=== PATIENT | male | born 1960 | race Caucasian/White ===

== ENCOUNTER 2016-11-03 11:15 | Emergency (ER) | payer OTHER ==
[~2016-11-03] VITALS: Ht 162.6 cm; Wt 60.5 kg
[2016-11-03 11:18] VITALS: BP 155/95; PULSE 94; RESP 18; O2SAT 97
--- NOTE | 2016-11-03 11:29 | ED.REPORT ---
HPI-Extremity Problem Upper Date of Service Nov 03, 2016 ED Provider: Dr. Loaiza Pt is a 56 y/o relatively healthy male w/ a hx of chronic pain presenting to the ED c/o left shoulder pain onset weeks ago. He states that he caught something that was heavy and may have twisted his left arm a week ago but his pain was present prior to that incident. His pain has increased over the past 3 days. Pt denies fever, numbness or weakness of the left arm, rash, warmth. He is not concerned that he has a fracture but would like help with management of his pain. He was told by his PCP Dr. Mcmullen that he should get another doctor during an unpleasant visit. Nursing Notes Stated Complaint: LEFT SHOULDER PAIN Chief Complaint: Extremity Trauma Nursing Notes Reviewed: Yes Allergies: Coded Allergies: Penicillins (Verified Allergy, Severe, 11/03/16) gabapentin (Verified Allergy, Severe, 11/03/16) tramadol (Verified Allergy, Severe, 11/03/16) General Time Seen by MD: 11:28 Chief Complaint Shoulder injury left Hx Obtained From: Patient Arrived By: Walk-in Onset Occurred: More than a week ago... (2 weeks) Symptom Duration: Since onset Location: : Shoulder left Quality: Painful Severity: Current: Moderate Severity: Maximum: Moderate Exacerbated by: Range of motion Past Medical History Past Medical History Chronic back pain - Fentanyl patch Otherwise denies Past Surgical History L5 laminectomy Carpal tunnel - bilat Smoking History Former Smoker, Never Smoker Ambulatory Status Independent Review of Systems Constitutional: Denies: Fever Musculoskeletal: Reports: Joint pain Skin: Denies Rash Neurologic: Denies: Numbness, Weakness Complete sys rev & neg: except as marked. Physical Exam Initial Vital Signs Vital Signs (First) Date Time Temp Pulse Resp B/P Pulse Ox O2 Delivery O2 Flow Rate FiO2 11/03/16 11:18 37.4 94 18 155/95 97 Room Air Initial VS: Reviewed, Vital signs normal Head / Eyes: Atraumatic, Normocephalic, PERRL ENT: Mucous membranes moist, Conjunctiva normal, No scleral icterus Neck: Full range of motion Respiratory: No respiratory distress Cardiovascular: Intact distal pulses Abdomen / GI: Soft, No distention Skin: Warm, Dry, No cyanosis Neurologic: Alert, Oriented, Nonfocal Psychiatric: Mood/affect normal, Behavior normal, Normal thought content Upper Extremity / MS: No erythema, No deformity, Neurologic intact, Vascular intact, No compartment syndrome, No circumferential injury, No clubbing/cyanosis LUE: 45 degrees of abduction 5 degrees of external rotation Minimal internal rotation AC joint tenderness Mild swelling No subacromial tenderness No warmth No rash Re-Eval/Medical Decision Source of Hx: Old records Re-Evaluation/Progress : Time of Eval: 11:44 Re-Evaluation/Progress Note: Pt rechecked. Informed pt of plan for treatment. Pt understands and agrees with plan for treatment. F/U and RTER warnings given. All questions addressed. Counseled Regarding: Diagnosis, Need for follow-up, When/why to return to ED Discharge & Departure Impression: Primary Impression: Left shoulder pain Chronicity: unspecified Qualified Code: M25.512 - Pain in left shoulder Disposition: Home Discharge Condition All VS Reviewed: Yes Condition: Stable Patient Instructions: Shoulder Sprain (ED) Additional Instructions: The cause of your pain is unclear at this time, but I agree that it does not seem to be a fracture or other dangerous condition. Take Meloxicam once per day until your symptoms are relieved. Wear the shoulder immobilizer until you are seen by your PCP. 2-3 times a day, you should perform the shoulder movements as we discussed to prevent frozen shoulder syndrome. Return to the emergency department for uncontrolled severe pain, numbness or weakness of your arm, or for other concerning symptoms. Dr. Reynolds has been referred to you below. Your appointment is: Referrals: Herbert Mcmullen MD (PCP) Arron Reynolds MD Attestation Portions of this note were transcribed by Jeevan Ontiveros. I, Dr. Loaiza personally performed the history, physical exam and medical decision-making; I reviewed and confirmed the accuracy of the information in the transcribed note. Signed by Mick Loza, 11/03/16 - 1200 copies to: Herbert Mcmullen MD; Arron Reynolds MD, Kirk H MD Nov 03, 2016 11:29 JEEVAN ONTIVEROS Nov 03, 2016 11:45 JEEVAN ONTIVEROS Nov 03, 2016 11:45
[2016-11-03] MEDS ORDERED: MELO-253 PO (11:49)
== END 2016-11-03 12:02 | disposition home or self-care (01) ==
LOC: SED 11:15
DX: M25.512 Pain in left shoulder (principal); X50.9XXA Other and unspecified overexertion or strenuous movements or postures, initial encounter; Y93.89 Activity, other specified; Y99.8 Other external cause status; Y92.9 Unspecified place or not applicable; Z87.828 Personal history of other (healed) physical injury and trauma; Z88.5 Allergy status to narcotic agent; Z88.8 Allergy status to other drugs, medicaments and biological substances; Z88.0 Allergy status to penicillin